=== PATIENT | male | born 1965 | race Asian ===

== ENCOUNTER 2020-04-18 21:29 | Inpatient (IN) | payer MEDICARE, MEDICAID ==
[~2020-04-18] VITALS: Ht 167.6 cm; Wt 85.3 kg
[2020-04-19 00:31] VITALS: BP 151/93
[2020-04-19] MEDS ORDERED: LEVOTHYROXINE200 MCG PO (00:31)
[2020-04-19] MEDS ORDERED: CARVEDILOL6.25 MG ORAL (00:31)
[2020-04-19] MEDS ORDERED: CLOPIDOGREL75 MG ORAL (00:31)
--- NOTE | 2020-04-19 00:37 | NUR ---
NURSE NOTES: Pt arrived via gurney from [facility] under the service of Dr. Ward for Pleural effusion and hypoxia. Pt is AO4, able to verbalize needs. On 3L oxygen per nasal cannula, saturating well. SOB upon activity; encouraged to rest. No complaints of pain or discomfort at this time. IV site on RAC#20, saline lock; flushed and intact. Oriented to hospital policy and protocols. Belongings accounted for and list signed. Called primary MD for admission orders. Will continue to monitor.
--- NOTE | 2020-04-19 01:31 | NUR ---
NURSE NOTES: Called and left a message with Dr. Ward for admission orders. Awaiting call back. Pt asleep, no complaints of pain or discomfort. On 3L oxygen per nasal cannula, saturating well. SOB with exertion. Will continue to monitor.
[2020-04-19] MEDS ORDERED: SYNTHROID25 MCG ORAL (03:00)
[2020-04-19] MEDS ORDERED: Omnipaque-300 100ml vial INJ PRN (03:15)
[2020-04-19 04:00] VITALS: BP 126/80
--- NOTE | 2020-04-19 07:06 | NUR ---
NURSE HAND-OFF REPORT: Important Events on Shift:[New admission; still with SOB with exertion; for thoracentesis today-consent signed and in the chart; EKG also in chart] Patient Status: [full code] Diet: [cardiac] Pending Orders: [2D echo, thoracentesis-send out fluid tof cell count analysis, culture, and protein; CT chest wo contrast] Pending Results/Labs:[] Pending MD notification:[] Latest Vital Signs: Temperature 98.7 , Pulse 103 , B/P 126 /80 , Respiratory Rate 18 , O2 SAT 98 , , O2 Flow Rate 3.0 . Vital Sign Comment: [] EKG Rhythm: ST w/ BBB Rhythm change?: N MD Notified?: - MD Response: Latest Rojas Fall Score: 20 Fall Risk: Low Risk Safety Measures: Call light Within Reach, Bed Alarm , Side Rails Side Rails x2, Bed position Low and Locked. Fall Precautions: Yellow Socks Patient Fall Education Report given to [STEPHANIE Olivera].
[2020-04-19 08:00] VITALS: BP 121/73
--- NOTE | 2020-04-19 08:12 | NUR ---
NURSE NOTES: Received patient report from STEPHANIE Marrufo. Patient is on 3L nasal canula with SOB on exacerbation. Patient shows no signs of distress or pain at the time. Patient is AO x4 awake and able to make needs known. IV is intact and patent. There are no signs of erythema, infiltration, or bleeding. Bed is in the lowest position, call light is within reach, side rails up x3. Will continue to monitor.
[2020-04-19] MEDS: Carvedilol 6.25mg Tab ORAL SCH ×2 (09:36→20:54)
[2020-04-19 09:54] LABS: BASOPHILS % (AUTO) 1.1 % (0.0-2.0); EOSINOPHILS % (AUTO) 2.8 % (0.0-3.0); HEMATOCRIT 40.3 % (42.0-52.0); HEMOGLOBIN 12.7 G/DL (14.2-18.0); LYMPHOCYTES % (AUTO) 23.8 % (20.0-45.0); MEAN CORPUSCULAR VOLUME 93 FL (80-99); MONOCYTES % (AUTO) 12.7 % (1.0-10.0); NEUTROPHILS % (AUTO) 59.6 % (45.0-75.0); PLATELET COUNT 326 K/UL (150-450); RED BLOOD COUNT 4.33 M/UL (4.70-6.10); RED CELL DISTRIBUTION WIDTH 13.1 % (11.6-14.8); WHITE BLOOD COUNT 6.6 K/UL (4.8-10.8)
--- NOTE | 2020-04-19 10:28 | Diagnostic Imaging Report ---
EXAM: CT Chest Without Intravenous Contrast CLINICAL HISTORY: PLEFF TECHNIQUE: Axial computed tomography images of the chest without intravenous contrast. CTDI is 7.40 mGy and DLP is 337.7 mGy-cm. One or more of the following dose reduction techniques were used: automated exposure control, adjustment of the mA and/or kV according to patient size, use of iterative reconstruction technique. COMPARISON: None FINDINGS: Lungs: Total collapse of the right lung. Emphysematous changes in the left lung with probable peripheral scarring. Pleural space: Very large right pleural effusion. No pneumothorax. Heart: Median sternotomy and CABG changes. No significant pericardial effusion. Bones/joints: Degenerative changes of the spine. No acute fracture. No dislocation. Soft tissues: Bilateral gynecomastia. Vasculature: Atherosclerotic changes of the aorta. No aortic aneurysm. Mild leftward shift of the mediastinum. Lymph nodes: Unremarkable. No enlarged lymph nodes. Gallbladder and bile ducts: Cholelithiasis in an underdistended gallbladder. Adrenals: Mild thickening of the left adrenal gland. IMPRESSION: 1. Very large right pleural effusion. 2. Total collapse of the right lung. 3. Emphysematous changes in the left lung with probable peripheral scarring. 4. Cholelithiasis in an underdistended gallbladder.
[2020-04-19 10:39] LABS: ALANINE AMINOTRANSFERASE 30 U/L (12-78); ALBUMIN 3.2 G/DL (3.4-5.0); ALBUMIN/GLOBULIN RATIO 0.7 (1.0-2.7); ALKALINE PHOSPHATASE 92 U/L (46-116); ANION GAP 7 mmol/L (5-15); ASPARTATE AMINO TRANSFERASE 24 U/L (15-37); BILIRUBIN,TOTAL 0.5 MG/DL (0.2-1.0); BLOOD UREA NITROGEN 11 mg/dL (7-18); CALCIUM 8.5 MG/DL (8.5-10.1); CARBON DIOXIDE 29 MMOL/L (21-32); CHLORIDE 104 MMOL/L (98-107); CHOLESTEROL 104 MG/DL (< 200); CREATININE 0.8 MG/DL (0.55-1.30); HDL CHOLESTEROL 39 MG/DL (40-60); PHOSPHORUS 3.9 MG/DL (2.5-4.9); POTASSIUM 4.1 MMOL/L (3.5-5.1); SODIUM 140 MMOL/L (136-145); TRIGLYCERIDES 79 MG/DL (30-150)
[2020-04-19 12:00] VITALS: BP 118/79
--- NOTE | 2020-04-19 13:45 | NUR ---
CASE MANAGEMENT: INITIAL REVIEW 55 YO M DIRECT ADMIT FROM [facility] SI: PLEURAL EFFUSION. HYPOXIA VS: T 98.1 HR 107 RR 19 B/P 151/93 SATS 100% ON 3L/NC LABS: GLU 111 TSH 5.717 IS: CT CHEST IMPRESSION: 1. Very large right pleural effusion. 2. Total collapse of the right lung. 3. Emphysematous changes in the left lung with probable peripheral scarring. 4. Cholelithiasis in an underdistended gallbladder. COREG PO BID LASIX IV BID PLAVIX PO QD PATIENT ADMITTED TO TELE 04/19/2020 @ 0214 DCP: HOME PLAN OF CARE: CARDIAC CONSULT PULMO CONSULT THORACENTESIS
[2020-04-19] MEDS: Heparin 5000 units/ml inj SUBQ SCH ×2 (14:00→21:42)
[2020-04-19 16:00] VITALS: BP 121/71
--- NOTE | 2020-04-19 16:59 | Consultation ---
DATE OF CONSULTATION: 04/19/2020 PULMONARY CONSULTATION HISTORY OF PRESENT ILLNESS: This is a 55-year-old male who was transferred from outside facility to this hospital overnight due to findings of a large right effusion and hypoxemia. The patient states that he has a known history of CAD and underwent a CABG in 2017. He has been maintaining himself on Coreg 6.25 mg once a day, levothyroxine 50 mcg once a day as well as Plavix 75 mg once a day. He states that from the last week he has been short of breath. He denies any cough. There are no aspiration episodes. No seizures. He has been a smoker, but quit about 4 years ago. REVIEW OF SYSTEMS: He denies any headaches, hematemesis, melena, hematochezia, or weight loss. PAST HISTORY: Hyperlipidemia, hypertension, hypothyroidism, CAD. PREVIOUS SURGERY: CABG. ALLERGIES: Aspirin. SOCIAL HISTORY: He has been a smoker. He is now retired. 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 PHYSICAL EXAMINATION: GENERAL: A 55-year-old male. HEENT: Unremarkable. CHEST: Exam shows dullness to percussion and absent breath sounds, right side. Left side is normal. ABDOMEN: Soft. There is no edema. There is a midline sternotomy scar. EXTREMITIES: There is no edema of the lower extremities. VITAL SIGNS: Blood pressure is 118/70, heart rate 94, respirations 18, O2 sat is 100% with use of oxygen. Chest CT obtained overnight shows total collapse of the right lung. IMPRESSION: 1. Large right effusion. 2. History of CABG. 3. Hypertension. 4. Chronic Plavix usage. 5. Hypothyroidism. DISCUSSION: Admit to the hospital. We will arrange thoracentesis. Hold Plavix. Discussed with the patient. Continue oxygen. Differential for this effusion is large. However, malignancy is currently not up on differential. Papito Stevens M.D. DR: LAVELL JOB#: [id number] CC:
--- NOTE | 2020-04-19 17:44 | Cardiac Electrophysiology PN ---
Subjective Subjective [id number] Objective Last 24 Hour Vital Signs Date Time Temp Pulse Resp B/P (MAP) Pulse Ox O2 Delivery O2 Flow Rate FiO2 04/19/20 16:00 97.9 95 20 121/71 (88) 99 04/19/20 16:00 90 04/19/20 12:00 97 04/19/20 12:00 99.3 93 20 118/79 (92) 100 04/19/20 09:36 98 121/73 04/19/20 09:00 Nasal Cannula 3.0 04/19/20 08:00 95 04/19/20 08:00 97.3 98 20 121/73 (89) 100 04/19/20 04:00 103 04/19/20 04:00 98.7 103 18 126/80 (95) 98 04/19/20 00:31 Nasal Cannula 3.0 04/19/20 00:31 98.1 107 19 151/93 (112) 100 04/19/20 00:00 102 Intake and Output 04/18/20 04/19/20 19:00 07:00 Output Total 300 ml Balance -300 ml Output Other 300 ml Laboratory Tests Test 04/19/20 09:00 White Blood Count 6.6 K/UL (4.8-10.8) Red Blood Count 4.33 M/UL (4.70-6.10) L Hemoglobin 12.7 G/DL (14.2-18.0) L Hematocrit 40.3 % (42.0-52.0) L Mean Corpuscular Volume 93 FL (80-99) Mean Corpuscular Hemoglobin 29.3 PG (27.0-31.0) Mean Corpuscular Hemoglobin Concent 31.4 G/DL (32.0-36.0) L Red Cell Distribution Width 13.1 % (11.6-14.8) Platelet Count 326 K/UL (150-450) Mean Platelet Volume 5.2 FL (6.5-10.1) L Neutrophils (%) (Auto) 59.6 % (45.0-75.0) Lymphocytes (%) (Auto) 23.8 % (20.0-45.0) Monocytes (%) (Auto) 12.7 % (1.0-10.0) H Eosinophils (%) (Auto) 2.8 % (0.0-3.0) Basophils (%) (Auto) 1.1 % (0.0-2.0) Sodium Level 140 MMOL/L (136-145) Potassium Level 4.1 MMOL/L (3.5-5.1) Chloride Level 104 MMOL/L (98-107) Carbon Dioxide Level 29 MMOL/L (21-32) Anion Gap 7 mmol/L (5-15) Blood Urea Nitrogen 11 mg/dL (7-18) Creatinine 0.8 MG/DL (0.55-1.30) Estimat Glomerular Filtration Rate > 60 mL/min (>60) Glucose Level 111 MG/DL (74-106) H Calcium Level 8.5 MG/DL (8.5-10.1) Phosphorus Level 3.9 MG/DL (2.5-4.9) Magnesium Level 2.2 MG/DL (1.8-2.4) Total Bilirubin 0.5 MG/DL (0.2-1.0) Aspartate Amino Transf (AST/SGOT) 24 U/L (15-37) Alanine Aminotransferase (ALT/SGPT) 30 U/L (12-78) Alkaline Phosphatase 92 U/L (46-116) Troponin I 0.010 ng/mL (0.000-0.056) Total Protein 7.6 G/DL (6.4-8.2) Albumin 3.2 G/DL (3.4-5.0) L Globulin 4.4 g/dL Albumin/Globulin Ratio 0.7 (1.0-2.7) L Triglycerides Level 79 MG/DL (30-150) Cholesterol Level 104 MG/DL (< 200) LDL Cholesterol 57 mg/dL (<100) HDL Cholesterol 39 MG/DL (40-60) L Cholesterol/HDL Ratio 2.7 (3.3-4.4) L Thyroid Stimulating Hormone (TSH) 5.717 uiU/mL (0.358-3.740) Brad Reyez MD Apr 19, 2020 17:43
--- NOTE | 2020-04-19 18:44 | Consultation ---
DATE OF CONSULTATION: 04/19/2020 CARDIOLOGY CONSULTATION CONSULTING PHYSICIAN: Brad Reyez MD REFERRING PHYSICIAN: Pilo Ward MD REASON FOR CONSULTATION: Coronary artery disease, hypertension, and pleural effusion. HISTORY OF PRESENT ILLNESS: The patient is a 55-year-old gentleman with history of hypertension, coronary artery disease, history of coronary artery bypass graft in 2017 at [facility], who presented to [facility] with shortness of breath. The patient was found to be hypoxemic and had large right-sided pleural effusion. The patient was then transferred to [facility] for further evaluation. The patient has history of smoking, but quit about 4 years ago. 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 His COVID was negative. REVIEW OF SYSTEMS: Negative other than what was mentioned in the history of present illness. PAST MEDICAL HISTORY: As mentioned above. FAMILY HISTORY: Noncontributory. ALLERGIES: He is allergic to aspirin. SOCIAL HISTORY: He used to be a smoker, quit and does not drink or use any drugs. PHYSICAL EXAMINATION: VITAL SIGNS: Show blood pressure of 121/71, pulse is 90, respirations 18, temperature 97.9. HEAD AND NECK: Showed no JVD. LUNGS: Clear. CARDIOVASCULAR: Shows regular S1 and S2 with no gallop or murmur. Sternotomy scar is intact. ABDOMEN: Soft. EXTREMITIES: No pitting edema. LABORATORY DATA: Labs show white count of 6.6, hemoglobin 12.7, hematocrit of 40, and platelet count is 226. Sodium 140, potassium 4.1, BUN of 11, creatinine 0.8, and glucose of 111. Troponin is negative. ASSESSMENT AND PLAN: 1. Shortness of breath. The patient had pleural effusion. The chest CT showed very large right-sided pleural effusion with total collapse of the right lung. The patient was evaluated by Dr. Stevens and arrangement for thoracentesis has been made. 2. Coronary artery disease with history of coronary artery bypass graft. Currently, he does not have any chest pressure. Troponin is negative. EKG showed old inferior wall [place]. The patient is allergic to aspirin. Continue Coreg 6.25 mg b.i.d. Resume Plavix. 3. Hypothyroidism, on Synthroid. 4. Hypertension, on Lasix and Coreg. Thank you very much for allowing me to participate in the care of this patient. Please do not hesitate to contact me for any further questions regarding my evaluation. The case was discussed with the nurse at the bedside. Brad Reyez M.D. DR: Curtis JOB#: [id number] CC:
--- NOTE | 2020-04-19 18:50 | History & Physical ---
History and Physical History & Physicial Dictated for Int Med-DR Ward no. [id number] Santiago Horvath MD Apr 19, 2020 18:50
--- NOTE | 2020-04-19 19:35 | NUR ---
NURSE HAND-OFF REPORT: Important Events on Shift:[Dr. Stevens said he would do Thoracenthesis tomorrow. Endorsed to get Thoracenthesis Tray and specimen bottle for him. ] Patient Status: [Full code] Diet: [Cardiac] Pending Orders: [] Pending Results/Labs:[] Pending MD notification:[] Latest Vital Signs: Temperature 97.9 , Pulse 90 , B/P 121 /71 , Respiratory Rate 20 , O2 SAT 99 , , O2 Flow Rate 3.0 . Vital Sign Comment: [] EKG Rhythm: SR/ BBB Rhythm change?: N MD Notified?: - MD Response: Latest Rojas Fall Score: 20 Fall Risk: Low Risk Safety Measures: Call light Within Reach, Bed Alarm Zone 1, Side Rails Side Rails x2, Bed position Low and Locked. Fall Precautions: Patient Fall Education Report given to [STEPHANIE Kebede].
--- NOTE | 2020-04-19 19:37 | NUR ---
NURSE NOTES: Received pt and report from STEPHANIE Olivera. Observed pt resting in bed with both eyes open. Pt is A/Ox4. interior design project manager is in placed; NSR (96 bpm). IV site intact, asymptomatic and patent; saline locked. Bed is in the lowest position and locked. Call light and bedside table is within reach. No signs/symptoms of acute distress noted. Will continue plan of care.
--- NOTE | 2020-04-19 19:44 | History and Physical Report ---
DATE OF ADMISSION: 04/18/2020 CHIEF COMPLAINT: The patient is a 55-year-old male who presents with a chief complaint of shortness of breath and cough. HISTORY OF PRESENT ILLNESS: The patient has a history of coronary artery disease, status post coronary artery bypass graft. The patient initially presented to [facility] Room complaining of a 2-day history of cough and shortness of breath. The patient tested negative for COVID-19 at [facility]. A chest x-ray revealed right pleural effusion. The patient is transferred to [facility] for insurance purposes. The patient is admitted with dyspnea and right pleural effusion. REVIEW OF SYSTEMS: CONSTITUTIONAL: The patient denies weight loss or weight gain. The patient denies fevers or chills. HEENT: The patient denies ear or throat pain. The patient denies headache. CARDIOVASCULAR: The patient denies palpitations or chest pain. CHEST: The patient complains of shortness of breath and cough as above. The patient denies wheezes. ABDOMEN: The patient denies nausea, vomiting, diarrhea, or constipation. GENITOURINARY: The patient denies dysuria or increased frequency of urination. NEUROMUSCULAR: The patient denies seizures or generalized weakness. PAST MEDICAL HISTORY: Significant for: 1. Coronary artery disease. 2. Hypertension. 3. Hypothyroidism. 4. Hypercholesterolemia. PAST SURGICAL HISTORY: Significant for. 1. Coronary artery bypass graft. 2. Carpal tunnel release. CURRENT MEDICATIONS: 1. Carvedilol 6.25 mg 1 tablet p.o. twice daily. 2. Clopidogrel 75 mg p.o. daily. 3. Levothyroxine 50 mcg p.o. daily. ALLERGIES: Aspirin. SOCIAL HISTORY: The patient is . The patient denies tobacco or alcohol use. PHYSICAL EXAMINATION: VITAL SIGNS: Temperature 97.6, respirations 20, pulse 56, blood pressure 136/90. GENERAL: The patient is a well-developed, well-nourished male, in no apparent distress. HEENT: Eyes, pupils equal and responsive to light and accommodation. Extraocular movements are intact. NECK: Supple without lymphadenopathy. CHEST: Decreased breath sounds on the right, otherwise without wheezes or rales. CARDIOVASCULAR: Regular rhythm and rate. S1, S2 are normal without murmurs, rubs, or gallops. ABDOMEN: Soft, nontender, nondistended. Positive bowel sounds. No evidence of hepatosplenomegaly. Currently no rebound or guarding noted. EXTREMITIES: Negative for clubbing, cyanosis, or edema. RECTAL/GENITALIA: Not performed. NEUROLOGIC: Cranial nerves II through XII are grossly intact without focal deficits. Motor strength is 5/5 bilaterally. Deep tendon reflexes are 2+ plantar. A chest x-ray revealed right-sided lung whiteout. This was performed at [facility]. An ultrasound revealed a large right pleural effusion. LABORATORY STUDIES: WBC 8.2, hemoglobin 12.6, hematocrit 37.6, platelets 191,000. Sodium 136, potassium 4.3, chloride 101, CO2 28, BUN 13, creatinine 0.86. Glucose 107, troponin less than 0.02. BNP 198. COVID-19 was negative. ASSESSMENT: This is a 55-year-old male. 1. Dyspnea. 2. Right pleural effusion. 3. History of coronary artery disease. 4. Hypertension. 5. Hypothyroidism. 6. Hypercholesterolemia. TREATMENT: 1. Dyspnea/right pleural effusion. A pulmonary consultation has been obtained with Dr. Stevens. The patient may require thoracentesis during this hospitalization. Follow recommendations of Pulmonary. 2. Coronary artery disease. A cardiology consultation has been obtained with Dr. Brad Reyez. Follow recommendations of Cardiology. 3. Hypertension. Continue Coreg as above. 4. Hypothyroidism. Continue Levoxyl as above. 5. Hypercholesterolemia. Santiago Horvath M.D. DR: LEDY JOB#: [id number] CC:
[2020-04-19 20:00] VITALS: BP 122/71
[2020-04-19] MEDS ORDERED: Miralax 17gm pkt ORAL SCH (21:00)
[2020-04-20] VITALS: BP 107/69
--- NOTE | 2020-04-20 01:32 | NUR ---
NURSE NOTES: Observed pt asleep in bed. No acute distress noted. Will continue plan of care.
[2020-04-20 04:00] VITALS: BP 108/75
[2020-04-20] MEDS: Heparin 5000 units/ml inj SUBQ SCH (06:00)
--- NOTE | 2020-04-20 07:18 | NUR ---
NURSE HAND-OFF REPORT: Important Events on Shift: No significant changes during night clerk auditor. Pt is SOB with activity. Pt stated he wants to go home once thoracentesis is completed. Thoracentesis tray and specimen bottle at bedside. Consent signed in pt's chart. Patient Status: Stable Diet: Cardiac Pending Orders: Thoracentesis Pending Results/Labs: AM Labs Pending MD notification: N Latest Vital Signs: Temperature 98.1 , Pulse 96 , B/P 108 /75 , Respiratory Rate 20 , O2 SAT 97 , , O2 Flow Rate 3.0 . EKG Rhythm: SR w/BBB Rhythm change?: N Latest Rojas Fall Score: 20 Fall Risk: Low Risk Safety Measures: Call light Within Reach, Bed Alarm Zone 1, Side Rails Side Rails x2, Bed position Low and Locked. Fall Precautions: Patient Fall Education Report given to STEPHANIE Sosa.
--- NOTE | 2020-04-20 07:19 | NUR ---
NURSE NOTES: Received patient up in bed awake. O2 via NC at 3LPM in place, no SOB or acute distress. IV line intact and patent. HOB elevated. Bed locked in low position. Call light within reach. For thoracentesis this AM, consent in chart, materials at bedside. Will continue plan of care.
[2020-04-20 08:00] VITALS: BP 105/72
[2020-04-20] MEDS: Carvedilol 6.25mg Tab ORAL SCH (09:02)
[2020-04-20 10:27] LABS: BASOPHILS % (AUTO) 0.8 % (0.0-2.0); HEMATOCRIT 40.8 % (42.0-52.0); HEMOGLOBIN 12.9 G/DL (14.2-18.0); LYMPHOCYTES % (AUTO) 24.9 % (20.0-45.0); MEAN CORPUSCULAR VOLUME 93 FL (80-99); MONOCYTES % (AUTO) 14.1 % (1.0-10.0); NEUTROPHILS % (AUTO) 57.3 % (45.0-75.0); PLATELET COUNT 337 K/UL (150-450); RED BLOOD COUNT 4.39 M/UL (4.70-6.10); RED CELL DISTRIBUTION WIDTH 13.3 % (11.6-14.8); WHITE BLOOD COUNT 7.5 K/UL (4.8-10.8)
[2020-04-20 10:38] LABS: ANION GAP 6 mmol/L (5-15); BLOOD UREA NITROGEN 15 mg/dL (7-18); CALCIUM 9.1 MG/DL (8.5-10.1); CARBON DIOXIDE 33 MMOL/L (21-32); CHLORIDE 104 MMOL/L (98-107); CREATININE 0.9 MG/DL (0.55-1.30); POTASSIUM 4.1 MMOL/L (3.5-5.1); SODIUM 143 MMOL/L (136-145)
--- NOTE | 2020-04-20 11:02 | Pulmonology Progress Note ---
Subjective Interval Events: For thoracentesis today Constitutional: Reports: no symptoms HEENT: Repors: no symptoms Respiratory: Reports: dry cough Cardiovascular: Reports: no symptoms Gastrointestinal/Abdominal: Reports: no symptoms Genitourinary: Reports: no symptoms Allergies: Coded Allergies: ASPIRIN (Verified Allergy, Severe, swelling, 04/19/20) Objective Last 24 Hour Vital Signs Date Time Temp Pulse Resp B/P (MAP) Pulse Ox O2 Delivery O2 Flow Rate FiO2 04/20/20 09:02 100 105/72 04/20/20 08:00 95.5 100 20 105/72 (83) 100 04/20/20 08:00 94 04/20/20 04:00 98.1 100 20 108/75 (86) 97 04/20/20 04:00 96 04/20/20 00:00 97 04/20/20 00:00 98.1 97 19 107/69 (82) 99 04/19/20 21:00 Nasal Cannula 3.0 04/19/20 20:54 93 122/71 04/19/20 20:00 97.5 90 19 122/71 (88) 99 04/19/20 20:00 103 04/19/20 16:00 97.9 95 20 121/71 (88) 99 04/19/20 16:00 90 04/19/20 12:00 97 04/19/20 12:00 99.3 93 20 118/79 (92) 100 Intake and Output 04/19/20 04/20/20 19:00 07:00 Output Total 500 ml Balance -500 ml Output Urine Total 500 ml # Voids 2 General Appearance: no acute distress HEENT: normocephalic Respiratory: chest wall non-tender, lungs clear Cardiovascular: normal peripheral pulses, normal rate Abdomen: normal bowel sounds Laboratory Tests 04/20/20 10:00: White Blood Count 7.5, Red Blood Count 4.39L, Hemoglobin 12.9L, Hematocrit 40.8L , Mean Corpuscular Volume 93, Mean Corpuscular Hemoglobin 29.5, Mean Corpuscular Hemoglobin Concent 31.7L, Red Cell Distribution Width 13.3, Platelet Count 337, Mean Platelet Volume 5.6L, Neutrophils (%) (Auto) 57.3, Lymphocytes (%) (Auto) 24.9, Monocytes (%) (Auto) 14.1H, Eosinophils (%) (Auto) 3.0, Basophils (%) (Auto) 0.8, Sodium Level 143, Potassium Level 4.1, Chloride Level 104, Carbon Dioxide Level 33H, Anion Gap 6, Blood Urea Nitrogen 15, Creatinine 0.9, Estimat Glomerular Filtration Rate > 60, Glucose Level 94, Calcium Level 9.1, Troponin I 0.005, Pro-B-Type Natriuretic Peptide 617H Current Medications Medications (Trade) Dose Ordered Sig/Mona Route PRN Reason Start Time Stop Time Status Last Admin Dose Admin Acetaminophen (Tylenol) 650 mg Q6H PRN ORAL For Headache 04/19/20 03:15 05/19/20 03:14 Carvedilol (Coreg) 6.25 mg BID@0900,2100 ORAL 04/19/20 09:00 05/19/20 08:59 04/20/20 09:02 Clopidogrel Bisulfate (Plavix) 75 mg DAILY ORAL 04/20/20 09:00 05/20/20 08:59 Furosemide (Lasix) 20 mg BID@0900,2100 IV 04/19/20 09:00 05/19/20 08:59 04/20/20 09:02 Heparin Sodium (Porcine) (Heparin 5000 units/ml) 5,000 units EVERY 8 HOURS SUBQ 04/19/20 14:00 06/03/20 13:59 Iohexol (OMNIPAQUE-300 100ml) 100 ml ONCE PRN INJ radiology 04/19/20 03:15 04/21/20 03:14 Levothyroxine Sodium (Synthroid) 50 mcg DAILY@0630 ORAL 04/19/20 06:30 05/19/20 06:29 04/20/20 06:07 Ondansetron HCl (Zofran) 4 mg Q4H PRN IVP Nausea & Vomiting 04/19/20 03:15 05/19/20 03:14 Polyethylene Glycol (Miralax) 17 gm BEDTIME ORAL 04/19/20 21:00 05/19/20 20:59 04/19/20 20:53 Assessment/Plan Assessment/Plan IMPRESSION: 1. Large right effusion. 2. History of CABG. 3. Hypertension. 4. Chronic Plavix usage. 5. Hypothyroidism. DISCUSSION: Will perform thoracentesis today Hold Plavix. Discussed with the patient. Continue oxygen. Differential for this effusion is large. However, malignancy is currently not up on differential. Jacquelin Medina Omar Syed MD Apr 20, 2020 11:02
--- NOTE | 2020-04-20 11:16 | NUR ---
NURSE NOTES: Thoracentesis ongoing. Samples sent to the lab. For CXR today.
[2020-04-20 11:54] VITALS: BP 156/65
--- NOTE | 2020-04-20 11:58 | Pre-Procedure Note/Attestation ---
Pre-Procedure Note/Attestation Complete Prior to Procedure Planned Procedure: right Procedure Narrative: Thoracentesis Indications for Procedure Pre-Operative Diagnosis: Large R effusion Attestation I attest that I discussed the nature of the procedure; its benefits; risks and complications; and alternatives (and the risks and benefits of such alternatives), prior to the procedure, with the patient (or the patient's legal loan servicing representative). I attest that, if there was a reasonable possibility of needing a blood tra nsfusion, the patient (or the patient's legal loan servicing representative) was given the [facility] standardized written summary, pursuant to the [place] Blood Safety Act ([place] Health and Safety Code # 1645, as amended). I attest that I re-evaluated the patient just prior to the surgery and that there has been no change in the patient's H&P, except as documented below: None Papito Stevens MD Apr 20, 2020 11:58
--- NOTE | 2020-04-20 12:44 | Procedure Note ---
DATE OF PROCEDURE: 04/20/2020 PROCEDURE: Thoracentesis. INDICATION: Large right effusion. PREOPERATIVE DIAGNOSIS: Pending cytology pathology. POSTOPERATIVE DIAGNOSIS: One liter of hemorrhagic fluid aspirated from right chest. PROCEDURE IN DETAIL: After informed consent, the patient was placed in sitting position with arms fully forwarded on table. The area overlying the 6th rib in the posterior interscapular line was palpated and identified using percussion. Next, 5 mL of 2% lidocaine was instilled into the appropriate interspace with adequate anesthesia. Aspirating catheter was inserted using Seldinger technique and bloody fluid immediately aspirated. This was drained via gravity over the course of the next 25 minutes. A total of one liter of fluid was aspirated and sent for analysis including cytology. There were no complications. Postprocedure x-ray was recommended. Postprocedure vitals were stable and normal. Nursing staff were present at bedside throughout procedure. Procedure was completed without complications. Papito Stevens M.D. DR: Kate JOB#: [id number] CC:
--- NOTE | 2020-04-20 14:01 | NUR ---
NURSE NOTES: Patient discharged on AMA, Dr Horvath aware. AMA papers signed. IV line removed. panel monitor removed. Belongings accounted for. Patient ambulated to lobby with steady gait, family waiting outside lobby.
--- NOTE | 2020-04-20 14:25 | Internal Med Progress Note ---
Subjective Date of Service: Apr 20, 2020 Physician Name Santiago Horvath Attending Physician Pilo Ward MD Allergies: Coded Allergies: ASPIRIN (Verified Allergy, Severe, swelling, 04/19/20) ROS Limited/Unobtainable: No Constitutional: Reports: no symptoms HEENT: Reports: no symptoms Cardiovascular: Reports: no symptoms Respiratory: Reports: shortness of breath Gastrointestinal/Abdominal: Reports: no symptoms Genitourinary: Reports: no symptoms Neurologic/Psychiatric: Reports: no symptoms Subjective 55 YO M admitted with shortness of breath. Cover for Int Med-Dr Ward. " I have to leave today. [facility]". Objective Last Vital Signs Date Time Temp Pulse Resp B/P (MAP) Pulse Ox O2 Delivery O2 Flow Rate FiO2 04/20/20 11:54 97.7 83 20 156/65 (95) 93 04/20/20 09:00 Nasal Cannula 3.0 Laboratory Tests Test 04/20/20 10:00 04/20/20 11:05 White Blood Count 7.5 K/UL (4.8-10.8) Red Blood Count 4.39 M/UL (4.70-6.10) L Hemoglobin 12.9 G/DL (14.2-18.0) L Hematocrit 40.8 % (42.0-52.0) L Mean Corpuscular Volume 93 FL (80-99) Mean Corpuscular Hemoglobin 29.5 PG (27.0-31.0) Mean Corpuscular Hemoglobin Concent 31.7 G/DL (32.0-36.0) L Red Cell Distribution Width 13.3 % (11.6-14.8) Platelet Count 337 K/UL (150-450) Mean Platelet Volume 5.6 FL (6.5-10.1) L Neutrophils (%) (Auto) 57.3 % (45.0-75.0) Lymphocytes (%) (Auto) 24.9 % (20.0-45.0) Monocytes (%) (Auto) 14.1 % (1.0-10.0) H Eosinophils (%) (Auto) 3.0 % (0.0-3.0) Basophils (%) (Auto) 0.8 % (0.0-2.0) Sodium Level 143 MMOL/L (136-145) Potassium Level 4.1 MMOL/L (3.5-5.1) Chloride Level 104 MMOL/L (98-107) Carbon Dioxide Level 33 MMOL/L (21-32) H Anion Gap 6 mmol/L (5-15) Blood Urea Nitrogen 15 mg/dL (7-18) Creatinine 0.9 MG/DL (0.55-1.30) Estimat Glomerular Filtration Rate > 60 mL/min (>60) Glucose Level 94 MG/DL (74-106) Calcium Level 9.1 MG/DL (8.5-10.1) Troponin I 0.005 ng/mL (0.000-0.056) Pro-B-Type Natriuretic Peptide 617 pg/mL (0-125) H Body Fluid Source Pleural Body Fluid Volume 19 mL Body Fluid Appearance Turbid (Clear) Body Fluid RBC [id number] /CUMM Body Fluid Total Nucleated Cells 425 /CUMM Body Fluid Polynuclear WBCs (%) 16 % Body Fluid Mononuclear WBCs (%) 76 % Body Fluid Mesothelial Cells (%) 8 % Body Fluid Glucose Pending Body Fluid Total Protein Pending Body Fluid Lactate Dehydrogenase Pending Body Fluid Comment Intake and Output 04/19/20 04/20/20 19:00 07:00 Output Total 500 ml Balance -500 ml Output Urine Total 500 ml # Voids 2 Objective PHYSICAL EXAMINATION: GENERAL: The patient is a well-developed, well-nourished male, in no apparent distress. HEENT: Eyes, pupils equal and responsive to light and accommodation. Extraocular movements are intact. NECK: Supple without lymphadenopathy. CHEST: Decreased breath sounds on the right, otherwise without wheezes or rales. CARDIOVASCULAR: Regular rhythm and rate. S1, S2 are normal without murmurs, rubs, or gallops. ABDOMEN: Soft, nontender, nondistended. Positive bowel sounds. No evidence of hepatosplenomegaly. Currently no rebound or guarding noted. EXTREMITIES: Negative for clubbing, cyanosis, or edema. RECTAL/GENITALIA: Not performed. NEUROLOGIC: Cranial nerves II through XII are grossly intact without focal deficits. Motor strength is 5/5 bilaterally. Deep tendon reflexes are 2+ plantar. Assessment/Plan Assessment/Plan ASSESSMENT: This is a 55-year-old male. 1. Dyspnea. 2. Right pleural effusion. 3. History of coronary artery disease. 4. Hypertension. 5. Hypothyroidism. 6. Hypercholesterolemia. TREATMENT: 1. Dyspnea/right pleural effusion. A pulmonary consultation has been obtained with Dr. Stevens. The patient may require thoracentesis during this hospitalization. Follow recommendations of Pulmonary. 2. Coronary artery disease. A cardiology consultation has been obtained with Dr. Brad Reyez. Follow recommendations of Cardiology. 3. Hypertension. Continue Coreg as above. 4. Hypothyroidism. Continue Levoxyl as above. 5. Hypercholesterolemia. 6. PATIENT LEFT AGAINST MEDICAL ADVISE. Santiago Horvath MD Apr 20, 2020 14:25
--- NOTE | 2020-04-20 15:05 | Diagnostic Imaging Report ---
EXAM: XR Chest, 1 View CLINICAL HISTORY: ABN CHST TECHNIQUE: Frontal view of the chest. COMPARISON: CT chest on 04/19/2020 FINDINGS: Hardware: None. Lungs/pleura: Opacification of the right hemithorax. Probable atelectasis or scarring at the left lung base. Heart/mediastinum: Median sternotomy and CABG changes. Soft tissues: Unremarkable. Bones: No acute fracture. Upper abdomen: Normal. IMPRESSION: Opacification of the right hemithorax. Probable atelectasis or scarring at the left lung base.
--- NOTE | 2020-04-20 16:32 | Cardiac Electrophysiology PN ---
Assessment/Plan Assessment/Plan 1. Shortness of breath. The chest CT showed very large right-sided pleural effusion with total collapse of the right lung. S/P 1 liter Right thoracentesis by Dr. Stevens . Cytology and a nalysis is pending. 2. Coronary artery disease with history of coronary artery bypass graft. Currently, he does not have any chest pressure. Troponin is negative. EKG showed old inferior wall [place]. The patient is allergic to aspirin. Continue Coreg 6.25 mg b.i.d and Plavix. 3. Hypothyroidism, on Synthroid. 4. Hypertension, on Lasix and Coreg. 5. Patient left AMA Subjective Subjective Underwent around 1 liter of thoracentesis. Objective Last 24 Hour Vital Signs Date Time Temp Pulse Resp B/P (MAP) Pulse Ox O2 Delivery O2 Flow Rate FiO2 04/20/20 11:54 97.7 83 20 156/65 (95) 93 04/20/20 09:02 100 105/72 04/20/20 09:00 Nasal Cannula 3.0 04/20/20 08:00 95.5 100 20 105/72 (83) 100 04/20/20 08:00 94 04/20/20 04:00 98.1 100 20 108/75 (86) 97 04/20/20 04:00 96 04/20/20 00:00 97 04/20/20 00:00 98.1 97 19 107/69 (82) 99 04/19/20 21:00 Nasal Cannula 3.0 04/19/20 20:54 93 122/71 04/19/20 20:00 97.5 90 19 122/71 (88) 99 04/19/20 20:00 103 Intake and Output 04/19/20 04/20/20 19:00 07:00 Output Total 500 ml Balance -500 ml Output Urine Total 500 ml # Voids 2 Laboratory Tests Test 04/20/20 10:00 04/20/20 11:05 White Blood Count 7.5 K/UL (4.8-10.8) Red Blood Count 4.39 M/UL (4.70-6.10) L Hemoglobin 12.9 G/DL (14.2-18.0) L Hematocrit 40.8 % (42.0-52.0) L Mean Corpuscular Volume 93 FL (80-99) Mean Corpuscular Hemoglobin 29.5 PG (27.0-31.0) Mean Corpuscular Hemoglobin Concent 31.7 G/DL (32.0-36.0) L Red Cell Distribution Width 13.3 % (11.6-14.8) Platelet Count 337 K/UL (150-450) Mean Platelet Volume 5.6 FL (6.5-10.1) L Neutrophils (%) (Auto) 57.3 % (45.0-75.0) Lymphocytes (%) (Auto) 24.9 % (20.0-45.0) Monocytes (%) (Auto) 14.1 % (1.0-10.0) H Eosinophils (%) (Auto) 3.0 % (0.0-3.0) Basophils (%) (Auto) 0.8 % (0.0-2.0) Sodium Level 143 MMOL/L (136-145) Potassium Level 4.1 MMOL/L (3.5-5.1) Chloride Level 104 MMOL/L (98-107) Carbon Dioxide Level 33 MMOL/L (21-32) H Anion Gap 6 mmol/L (5-15) Blood Urea Nitrogen 15 mg/dL (7-18) Creatinine 0.9 MG/DL (0.55-1.30) Estimat Glomerular Filtration Rate > 60 mL/min (>60) Glucose Level 94 MG/DL (74-106) Calcium Level 9.1 MG/DL (8.5-10.1) Troponin I 0.005 ng/mL (0.000-0.056) Pro-B-Type Natriuretic Peptide 617 pg/mL (0-125) H Body Fluid Source Pleural Body Fluid Volume 19 mL Body Fluid Appearance Turbid (Clear) Body Fluid RBC [id number] /CUMM Body Fluid Total Nucleated Cells 425 /CUMM Body Fluid Polynuclear WBCs (%) 16 % Body Fluid Mononuclear WBCs (%) 76 % Body Fluid Mesothelial Cells (%) 8 % Body Fluid Glucose Pending Body Fluid Total Protein Pending Body Fluid Lactate Dehydrogenase Pending Body Fluid Comment Objective HEAD AND NECK: Showed no JVD. LUNGS: Decreased breath sounds on Right CARDIOVASCULAR: Shows regular S1 and S2 with no gallop or murmur. Sternotomy scar is intact. ABDOMEN: Soft. EXTREMITIES: No pitting edema. Brad Reyez MD Apr 20, 2020 16:32
--- NOTE | 2020-04-23 01:58 | Cardiology Report ---
APPROVED REPORT EKG Measurement Heart [id number] <Conclusion> Sinus tachycardia Nonspecific intraventricular conduction delay ST & T wave abnormality, consider inferior ischemia Abnormal ECG
--- NOTE | 2020-04-23 09:20 | Cardiology Report ---
APPROVED REPORT EXAM: Two-dimensional and M-mode echocardiogram with Doppler and color Doppler. INDICATION CAD M-Mode DIMENSIONS IVSd0.8 (0.7-1.1cm)Left Atrium (MM)2.6 (1.6-4.0cm) LVDd5.9 (3.5-5.6cm)Aortic Root3.1 (2.0-3.7cm) PWd0.9 (0.7-1.1cm)Aortic Cusp Exc.1.6 (1.5-2.0cm) IVSs1.3 cmEPSS1.0 (>1.0cm) LVDs5.1 (2.5-4.0cm) PWs0.9 cm <Conclusion> Global left ventricular hypokinesis. Mild left ventricular enlargement. Left ventricular ejection fraction estimated to be 30 %. No evidence of left ventricular hypertrophy. Moderate posterior pericardial effusion. All other cardiac chamber sizes are within normal limits. Focal aortic valve sclerosis with adequate cusp excursion. Thickened mitral valve leaflets with normal excursion. Mitral annulus and aortic root calcification. Pulmonic valve not well visualized. Normal tricuspid valve structure. IVC is normal in size with physiological collapse. A color flow and spectral Doppler study was performed and revealed: Moderate aortic regurgitation. Mild mitral regurgitation. Mitral diastolic velocities suggest mild left ventricular diastolic dysfunction (Grade I). No tricuspid regurgitation. Mild to moderate pulmonic regurgitation present.
--- NOTE | 2020-04-23 14:14 | Discharge Summary ---
Discharge Summary Discharge Summary _ Date of admission: 04/18/2020 Patient left AGAINST MEDICAL ADVICE on 04/20/2020 History of Present Illness and Brief Hospital Course Mr. Grey is a 55-year-old male who was transferred from outside facility to [facility] due to findings of a large right effusion and hypoxemia. Patient stated that he had a known history of CAD and CABG in 2017. He reported that he was compliant with his Coreg 6.25 mg once a day, levothyroxine 50 mcg once a day, and Plavix 75 mg once a day. Patient reported that he had been short of breath for 1 week. Of note, CT of chest without contrast revealed very large right pleural effusion, total collapse of the right lung, emphysematous changes in the left lung with probable peripheral scarring, and cholelithiasis in an underdistended gallbladder. Echocardiogram revealed ejection fraction of 30% along with aortic, mitral, and pulmonic regurgitation. Patient underwent thoracentesis with 1 L of fluid aspirated. The fluid was sent for analysis including cytology. However, patient expressed his wish to leave the hospital. Patient was educated on risks of leaving AMA. Patient signed the AMA papers and left the hospital. The results of fluid analysis were not available until the time of discharge. Patient ambulated to the lobby and was accompanied by his family. Consultants: Cardiology Dr. Reyez Pulmonology Dr. Stevens Final diagnoses Respiratory distress Coronary artery disease with history of coronary artery bypass grafting Hypothyroidism Hypertension Large right effusion, s/p thoracentesis Cholelithiasis I have been assigned to dictate discharge summary for this account. I was not involved in the patient's management Louis Grande Apr 23, 2020 14:14
== END 2020-04-20 14:19 | disposition left against medical advice (07) | DRG 187 ==
LOC: 2E 23:45
PROC: 0W993ZZ Drainage of Right Pleural Cavity, Percutaneous Approach (ICD-10-PCS; principal; 2020-04-20)
DX: J90 Pleural effusion, not elsewhere classified (principal); J98.11 Atelectasis; I25.10 Atherosclerotic heart disease of native coronary artery without angina pectoris; Z95.1 Presence of aortocoronary bypass graft; I10 Essential (primary) hypertension; E03.9 Hypothyroidism, unspecified; E78.00 Pure hypercholesterolemia, unspecified; R06.03 Acute respiratory distress; K80.20 Calculus of gallbladder without cholecystitis without obstruction; Z79.02 Long term (current) use of antithrombotics/antiplatelets; Z87.891 Personal history of nicotine dependence; I25.2 Old myocardial infarction; Z88.6 Allergy status to analgesic agent
CPT/HCPCS: 36415; 71045; 71250; 80048; 80053; 80061; 83735; 83880; 84100; 84443; 84484; 85025; 88104; 89051; 93005; 93306